=== PATIENT | male | born 1950 | race Caucasian/White ===

== ENCOUNTER → 2023-07-30 09:05 | Outpatient (REF) | payer MEDICARE, OTHER, SELFPAY | LOC: RCS 09:05 | PROVIDERS: ATTENDING PHYSICIAN Internal Medicine Cardiovascular Disease; FAMILY PHYSICIAN Internal Medicine | DX: I35.1 Nonrheumatic aortic (valve) insufficiency (principal) | CPT/HCPCS: 93306 ==

== ENCOUNTER → 2023-08-25 08:34 | Outpatient (REF) | payer MEDICARE, OTHER, SELFPAY | LOC: RCS 08:34 | PROVIDERS: ATTENDING PHYSICIAN Internal Medicine Cardiovascular Disease; FAMILY PHYSICIAN Internal Medicine | DX: I10 Essential (primary) hypertension (principal); I35.1 Nonrheumatic aortic (valve) insufficiency; R00.2 Palpitations; E78.5 Hyperlipidemia, unspecified; D47.2 Monoclonal gammopathy; R61 Generalized hyperhidrosis; R06.02 Shortness of breath | CPT/HCPCS: 93017 ==

== ENCOUNTER → 2023-08-26 08:15 | Outpatient (REF) | payer MEDICARE, OTHER, SELFPAY ==
[2023-08-26 10:47] LABS: TSH Reflex To Free T4 1.31 uIU/ml (0.47-4.68)
== END ==
LOC: REG 08:15
PROVIDERS: ATTENDING PHYSICIAN Internal Medicine Cardiovascular Disease; FAMILY PHYSICIAN Internal Medicine
DX: I10 Essential (primary) hypertension (principal); I35.1 Nonrheumatic aortic (valve) insufficiency; R00.2 Palpitations; R61 Generalized hyperhidrosis
CPT/HCPCS: 36415; 84443

== ENCOUNTER → 2024-03-01 10:03 | Outpatient (REF) | payer MEDICARE, OTHER, SELFPAY | LOC: RAD 10:03 | PROVIDERS: ATTENDING PHYSICIAN Specialist; FAMILY PHYSICIAN Internal Medicine | DX: N20.0 Calculus of kidney (principal) | CPT/HCPCS: 74018 ==

== ENCOUNTER → 2024-03-04 09:11 | Outpatient (REF) | payer MEDICARE, OTHER, SELFPAY | LOC: HWRAD 09:11 | PROVIDERS: ATTENDING PHYSICIAN Specialist; FAMILY PHYSICIAN Internal Medicine | DX: N20.0 Calculus of kidney (principal) | CPT/HCPCS: 74176 ==

== ENCOUNTER 2024-05-31 21:11 | Emergency (ER) | payer MEDICARE, OTHER, SELFPAY ==
[2024-05-31 21:15] VITALS: BP 159/76
[2024-05-31 21:44] LABS: % Basophils 0.5 % (0-2); % Eosinophils 1.2 % (0-6); % Immature Granulocytes 0.2 % (0-0.5); % Lymphocytes 9.5 % (20.5-51.1); % Monocytes 8.6 % (1.7-9.3); Absolute Basophils 0.1 10^3/uL (0-0.2); Absolute Eosinophils 0.1 10^3/uL (0-0.7); Absolute Lymphocytes 0.9 10^3/uL (1.2-3.4); Absolute Monocytes 0.8 10^3/uL (0.1-0.6); Absolute Neutrophils 7.7 10^3/uL (1.4-6.5); Hematocrit 37.1 % (39.0-52.0); Mean Corpuscular Hgb 33.7 pg (27.0-31.0); Mean Corpuscular Volume 96.1 fL (80.0-94.0); Mean Platelet Volume 9.6 fL (7.4-10.4); Nucleated Red Blood Cells % 0 % (-); Platelet Count 211 10^3/uL (130-400); Red Blood Cell Count 3.86 10^6/uL (4.70-6.10); Red Cell Dist. Width 12.5 % (11.5-14.5); White Blood Cell Count 9.6 10^3/uL (4.8-10.8)
[2024-05-31 21:46] LABS: Urine Albumin 2+ (Neg - Trace); Urine Bilirubin Negative (Negative); Urine Character Clear (Clear); Urine Color Yellow; Urine Glucose Negative (Negative); Urine Ketone 3+ (Negative); Urine Leukocyte Negative (Negative); Urine Nitrite Negative (Negative); Urine Occult Blood Negative (Negative); Urine Urobilinogen Negative (Neg - 1+)
[2024-05-31 21:53] LABS: Urine Bacteria Few (Negative); Urine Mucus Many; Urine Red Blood Cell 0-2 /HPF (0-2); Urine Squamous Cell 0-2 /LPF (Few); Urine White Cell 0-2 /HPF (0-5)
[2024-05-31 22:02] LABS: Lactic Acid 1.1 mmol/L (0.7-2.0)
[2024-05-31 22:12] LABS: ALT (SGPT) 22 U/L (0-50); AST (SGOT) 26 U/L (17-59); Albumin 4.5 g/dl (3.5-5.0); Alkaline Phosphatase 95 U/L (38-126); Blood Urea Nitrogen 18 mg/dl (9-20); Calcium 9.5 mg/dl (8.4-10.2); Carbon Dioxide 25 mmol/L (22-30); Chloride 105 mmol/L (98-107); Glucose 115 mg/dl (70-99); Potassium 4.3 mmol/L (3.5-5.1); Sodium 137 mmol/L (135-145); Total Protein 7.5 g/dl (6.3-8.2); eGFR > 60.00
--- NOTE | 2024-06-01 00:02 | ED.GENMED ---
History of Present Illness
General
Chief Complaint: Flank Pain
Source: patient, records, spouse and previous radiology exam (CT abdomen pelvis March 04, 2024 showing numerous intrarenal stones bilateral with left-sided hydronephrosis, 6 mm stone at left UVJ/bladder.)
Exam Limitations: none
Time Seen by Provider: 05/31/24 23:41
Nursing documentation reviewed up to this point in time: agreed with except (Patient does not have history of abdominal aortic aneurysm. 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
History of Present Illness
History of Present Illness:
This is a 73-year-old gentleman who has history of kidney stones, follows with Dr. Millan. Passed a 6 mm stone uneventfully early March of this year and underwent CAT scan March 04 showing multiple intrarenal stones bilaterally as well as mild
left-sided hydronephrosis and 6 mm stone at the distal left ureter at the entrance to the bladder.
He complains of acute right flank pain that began yesterday morning shortly after breakfast and has been intermittent since then. Right flank pain has been intermittently severe accompanied with nausea without vomiting, accompanied with
restlessness. He took a dose of tamsulosin yesterday as well as today. He did note mild hematuria yesterday which has cleared today. He denies dysuria and urgency nor fever. He has had continued with nausea throughout the day today but no
vomiting, somewhat decreased oral intake today and decreased urine output tonight.
He has not taken anything for pain.
Previous ED visits for renal colic most recently August 2020. Patient has never required endoscopic stone retrieval nor lithotripsy.
Past History
Past History
ED Past Medical History: Arrthythmia, Cancer (Myeloma), HTN, Hypercholesterolemia, Valvular disease (Aortic regurgitation, dilated aortic root.), Other (Thoracic compression fracture 2015), Other (Osteopenia) and Other (Medullary sponge
kidney/kidney stones)
ED Past Surgical History: Appendectomy and Other (Abdominal wall hernia repair)
Social History
Tobacco: Non-smoker
Alcohol: Occasional
Drug: None
Personal: Other (Fianc�)
Living: with family
Employment: Employed
Family History
Family History: Other (Noncontributory)
Phy Exam
Physical Exam
Physical Exam:
GENERAL: 73-year-old gentleman appears his stated age, awake and alert, pleasant, appears in no acute distress. is accompanying.
EYE: anicteric
NECK: Supple, nontender, no meningismus, no significant adenopathy.
ENT: oral mucosa is moist. No rhinorrhea.
CARDIAC: Regular rate and rhythm. no murmur.
LUNGS: Clear breath sounds bilaterally, no acute respiratory distress, no wheezes/rales/rhonchi
ABDOMEN: Soft, nondistended, without focal tenderness, no r/g, mild to moderate right CVA tenderness with percussion. Normoactive BS.
NEUROLOGICAL: Alert and oriented x3, no focal neuro deficits. Gait is steady.
SKIN: Warm and dry, normal color, skin intact. No rash.
MUSCULOSKELETAL: No C/C/E. peripheral pulses are full and equal b/l. No palpable tenderness.
PSYCH: Normal and appropriate interaction.
Course
Orders/Labs/Results
Orders:
Orders
05/31/24 21:21
Comprehensive Metabolic Panel Urgent
05/31/24 21:22
Complete Blood Count/With Diff Urgent
Lactic Acid Urgent
Urine Culture Reflexed from UA [Urinalysis Reflex To Culture] Urgent
Date Specimen was Collected: 05/31/24
Time Specimen was Collected: 21:20
Urine Microscopic Reflex Cult Urgent
05/31/24 23:58
0.9% Sodium Chloride 1000 ml [Nss] 1,000 ml IV BOLUS
Ketorolac [Toradol] 30 mg IV NOW STA
Ondansetron Injectable [Zofran] 4 mg IV NOW STA
06/01/24 00:45
CT Abd/pel Without Iv Or Oral Urgent
Reason For Exam: acute R flank pain w N. hx kidney stones
Abnormal Lab Results
05/31/24 05/31/24
21:21 21:22
RBC 3.86 L 10^6/uL
(4.70-6.10)
Hct 37.1 L %
(39.0-52.0)
MCV 96.1 H fL
(80.0-94.0)
MCH 33.7 H pg
(27.0-31.0)
Absolute Neuts (auto) 7.7 H 10^3/uL
(1.4-6.5)
Absolute Lymphs (auto) 0.9 L 10^3/uL
(1.2-3.4)
Absolute Monos (auto) 0.8 H 10^3/uL
(0.1-0.6)
Neutrophils % 80.0 H %
(42.2-75.2)
Lymphocytes % 9.5 L %
(20.5-51.1)
Glucose 115 H mg/dl
(70-99)
Urine Ketones 3+ A
(Negative)
Urine Bacteria (Reflex) Few A
(Negative)
Urine Albumin (Reflex) 2+ A
(Neg - Trace)
05/31/24 21:22
05/31/24 21:21
Vital Signs
Initial and Last Documented VS:
Initial Vital Signs
Temp Pulse Resp BP Pulse Ox
98.2 F 85 20 159/76 96
05/31/24 21:15 05/31/24 21:15 05/31/24 21:15 05/31/24 21:15 05/31/24 21:15
Last Documented Vital Signs
Temp Pulse Resp BP Pulse Ox
98.2 F 70 16 126/67 96
05/31/24 21:15 06/01/24 00:43 06/01/24 00:43 06/01/24 00:43 06/01/24 00:43
MDM/Problems Addressed
Differential Diagnosis Includes:
Concern for renal colic on the right/right ureteric stone. Other consideration is musculoskeletal back pain, gastroenteritis, diverticulitis, pyelonephritis.
Labs thus far unremarkable/within normal limits.
Urinalysis shows +3 ketones, otherwise unremarkable.
Will medicate for pain and nausea, initiate IV fluids and will check CT abdomen pelvis.
Chronic conditions affecting care: HTN, Arrhythmia and Kidney disease (Kidney stones/medullary sponge kidney)
*Radiology
Radiology exam reviewed: radiology read reviewed
*Pulse Oximetry
Patient hypoxic: no
*Critical Care Note
Total Time (30-74mins, 75-104mins- exclusive of procedures): Not Applicable
Update Note
Update Note:
01:45
Patient has remained pain-free and comfortable after 1 IV dose of Toradol.
CAT scan shows 9 mm stone proximal right ureter with mild hydronephrosis.
Will discharge to home with prescription for oral Toradol, Zofran and Flomax.
Discussed importance of remaining well-hydrated on a daily basis.
Prompt follow-up with Dr. Millan.
Return precautions discussed.
ED Attending Note
-
Portions of this chart may have been created with voice recognition software.� Occasional wrong word or��sound alike� substitutions may have occurred due to the inherent limitations of voice recognition software.
Discharge Plan
Departure
Patient Disposition: Home (Routine Discharge)
Date of Disposition: 06/01/24
Time of Disposition: 02:01
Patient with high blood pressure during this ER visit?: No
Condition: Good
Discharge Problem:
Calculus of proximal right ureter
Instructions: Kidney Stones (DC)
Prescriptions:
New
ketorolac 10 mg tablet
10 mg PO QID PRN (Reason: pain) Qty: 20 0RF
tamsulosin [Flomax] 0.4 mg Capsule
0.4 mg PO DAILY Qty: 14 0RF
ondansetron 4 mg tablet,disintegrating
4 mg PO QID PRN (Reason: nausea and vomiting) Qty: 20 0RF
No Action
digoxin [Digitek] 250 MCG tablet
250 mcg PO HS
metoprolol tartrate 50 MG tablet
50 mg PO BID
aspirin 81 MG tablet,chewable
81 mg PO HS
lisinopril 5 MG tablet
5 mg PO HS
loratadine 10 MG tablet
10 mg PO DAILY
docosahexaenoic acid-epa 1 CAP capsule
1 cap PO DAILY
ascorbic acid (vitamin C) 500 MG capsule
500 mg PO DAILY PRN (Reason: as needed for stones )
cholecalciferol (vitamin D3) 2,000 UNIT tablet,chewable
2,000 unit PO DAILY
zoledronic [id number] [Zometa] 4 MG/100 ML piggyback
4 mg IV MONTHLY MDD EVERY OTHER MONTH
Patient Comments:
Receives in OID at
vitamin E (dl, acetate) 400 UNITS capsule
400 units PO DAILY
calcium carb-mag ox-zinc sulf 1 EACH tablet
1 ea PO DAILY
oxycodone-acetaminophen 5 MG/325 MG tablet
1 tab PO Q4HPRN PRN (Reason: pain) Qty: 19 0RF
Rx Instructions:
Last filled 06/15/21 #10 x3 day supply
tamsulosin 0.4 MG capsule
0.4 mg PO DAILY Qty: 7 0RF
ondansetron 4 MG tablet,disintegrating
4 mg PO TIDPRN PRN (Reason: nausea/vomiting) Qty: 7 0RF
atorvastatin 20 mg tablet
20 mg PO HS
meclizine 25 mg Tablet
25 mg PO PRN PRN (Reason: dizziness) Qty: 10 0RF
Referrals:
Dhruv Guido MD [Family Provider] -
Galo Millan MD [Active] - Call in 1-3 days for appt
Interventions
Interventions:
*Risk Screen - Suicide Last Done: 05/31/24 23:33
*General Assessment Last Done: 05/31/24 21:15
*Neglect/Abuse Screening Last Done: 05/31/24 23:33
*ED- Fall Risk Assessment Last Done: 05/31/24 23:33
*ED COVID-19 Vaccine History Last Done: 05/31/24 23:33
RJ-Ypqpjp-Vqpnultqgg Assessment Last Done: 05/31/24 23:33
ED-Male Genitourinary Assessment Last Done: 05/31/24 23:33
Discharge Date and Time
Print Language: GREENLANDIC
[2024-06-01] MEDS: NSS 1000 IV (00:14)
[2024-06-01] MEDS: ZOFRAN 4 MG IV (00:15)
[2024-06-01] MEDS: TORADOL 30 MG IV (00:15)
[2024-06-01 00:43] VITALS: BP 126/67
[2024-06-01] MEDS: TORADOL 10 MG PO (02:36)
[2024-06-01 02:45] VITALS: BP 129/51
== END 2024-06-01 02:45 | disposition home or self-care (01) ==
LOC: EMR 21:11
PROVIDERS: Emergency Medicine; EMERGENCY PHYSICIAN Emergency Medicine; FAMILY PHYSICIAN Internal Medicine
DX: R10.9 Unspecified abdominal pain (principal); I10 Essential (primary) hypertension; E78.00 Pure hypercholesterolemia, unspecified; I35.1 Nonrheumatic aortic (valve) insufficiency; I38 Endocarditis, valve unspecified; Q61.5 Medullary cystic kidney; M85.80 Other specified disorders of bone density and structure, unspecified site; N13.2 Hydronephrosis with renal and ureteral calculous obstruction; Z79.899 Other long term (current) drug therapy; Z87.442 Personal history of urinary calculi; Z88.5 Allergy status to narcotic agent; Z90.49 Acquired absence of other specified parts of digestive tract
CPT/HCPCS: 99284; 96374; 96375; 96361; 74176; 80053; 81003; 81015; 83605; 85025

== ENCOUNTER 2024-06-04 06:16 | Day surgery (SDC) | payer MEDICARE, OTHER, SELFPAY ==
[2024-06-04] VITALS (7 sets, daily range): BP systolic 119–156; BP diastolic 66–75; BMI 29.2
[2024-06-04] MEDS: Pyridium 200 MG PO (17:27)
[2024-06-04] MEDS: FLOMAX 0.4 MG PO (17:27)
[2024-06-04] MEDS: EMLA CREAM 5 GRAM TOPICAL (17:38)
== END 2024-06-04 18:25 | disposition home or self-care (01) ==
LOC: SDS 06:16
PROVIDERS: ATTENDING PHYSICIAN Specialist
DX: N20.2 Calculus of kidney with calculus of ureter (principal); Q61.5 Medullary cystic kidney; C90.00 Multiple myeloma not having achieved remission; Z87.442 Personal history of urinary calculi
CPT/HCPCS: 52356; 74018; 76000; 82365; 87086; 93005; C1894; C2617

== ENCOUNTER 2024-07-15 06:13 | Day surgery (SDC) | payer MEDICARE, OTHER, SELFPAY ==
[2024-07-15] VITALS (9 sets, daily range): BP systolic 118–143; BP diastolic 51–72; BMI 27.8
[2024-07-15] MEDS: Pyridium 200 MG PO (09:09)
== END 2024-07-15 10:20 | disposition home or self-care (01) ==
LOC: SDS 06:13
PROVIDERS: ATTENDING PHYSICIAN Specialist
DX: N20.0 Calculus of kidney (principal); Q61.5 Medullary cystic kidney
CPT/HCPCS: 52356; 74018; 76000; 82365; A4300; C2617

== ENCOUNTER → 2024-08-16 09:29 | Outpatient (REF) | payer MEDICARE, OTHER, SELFPAY ==
[2024-08-16 11:29] LABS: Digoxin 0.6 ng/ml (0.8-2.0)
== END ==
LOC: REG 09:29
PROVIDERS: ATTENDING PHYSICIAN Internal Medicine Cardiovascular Disease; FAMILY PHYSICIAN Internal Medicine
DX: R00.2 Palpitations (principal); R42 Dizziness and giddiness
CPT/HCPCS: 36415; 80162

== ENCOUNTER → 2025-01-11 11:10 | Outpatient (REF) | payer MEDICARE, OTHER, SELFPAY | LOC: HWRCS 11:10 | PROVIDERS: ATTENDING PHYSICIAN Internal Medicine Cardiovascular Disease; FAMILY PHYSICIAN Internal Medicine | DX: I35.1 Nonrheumatic aortic (valve) insufficiency (principal) | CPT/HCPCS: 93306 ==